=== PATIENT | female | born 1980 | race Caucasian/White ===

== ENCOUNTER 2017-12-25 05:55 | Inpatient (IN) ==
--- NOTE | 2017-12-25 07:11 | ED ---
HPI General Chief Complaint: Psychiatric Symptoms Stated Complaint: Psych Eval Time Seen by Provider: 12/25/17 07:09 Source: patient Mode of arrival: ambulatory Limitations: no limitations History of Present Illness HPI Narrative: 37-year-old female presents emergency department as a transfer [place]. She has been medically clear prior to arrival. Patient did cut her left wrist after drinking a large amount of alcohol which worsens her depression. Patient tells me that "this was stupid" and she was "just upset." Patient states she has not done this in the past. She denies any other medical needs at this time. Related Data Allergies Allergy/AdvReac Type Severity Reaction Status Date / Time No Known Allergies Allergy Unverified 12/25/17 09:06 Review of Systems Except as stated in HPI: all other systems reviewed are negative PMFSH Medical History Medical History Decreased vision (Acute) Depressed (Acute) Surgical History Surgical History History of tubal ligation (Acute) Family History Family History Other Family history of cancer Social History Social History Substance History: No History of Abuse Second Hand Smoke Exposure: No Smoking Status: Heavy tobacco smoker Tobacco Type: Cigarettes How Often Do You Have a Drink Containing Alcohol: 2 to 4 times a month Exam Narrative Exam Narrative: GENERAL: Well-nourished, well-developed female patient in no acute distress SKIN: Focused skin assessment warm/dry. Horizontal laceration on the anterior left wrist. [place] intact. Bleeding is controlled. HEAD: Normocephalic. EYES: No scleral icterus. No injection or drainage. NECK: Supple, trachea midline. No JVD or lymphadenopathy. CARDIOVASCULAR: Elevated rate RESPIRATORY: No accessory muscle use. GASTROINTESTINAL: Abdomen nondistended. MUSCULOSKELETAL: No cyanosis, or edema. BACK: No obvious deformity Course Initial Documented Vital Signs Pulse Rate 87 12/25/17 10:00 Respiratory Rate 18 12/25/17 10:00 Blood Pressure 102/64 12/25/17 10:00 Last Documented Vital Signs Temperature 97.7 F 12/25/17 18:21 Pulse Rate 98 H 12/25/17 18:21 Respiratory Rate 16 12/25/17 18:21 Blood Pressure 111/55 L 12/25/17 18:21 Pulse Oximetry 96 12/25/17 18:21 Medical Decision Making HARSHAD Attestation HARSHAD supervised visit: No MDM Narrative Medical decision making narrative: 37-year-old female is a [facility] act transfer from another facility after being medically clear. Patient does have a self- inflicted laceration to the left wrist. It is approximated with deloris prior to arrival. The extremity remains neurovascularly intact. No limitations in range of motion. Sensation is intact distal affected extremity. Lab work is not needed at this time as it was already done. Patient remains medically cleared to undergo psychiatric screening for further evaluation and disposition. Differential Diagnosis Differential Diagnosis: Mood disorder versus personality disorder versus adjustment reaction disorder Discharge Plan Discharge Disposition Patient Disposition: 30 Still Patient Discharge Condition Condition: Stable Physicians Team ED Provider: Gonzalo Chiu ED Midlevel Provider: Asael Andres Primary Care Provider: Primary Care Herlinda Infante Attending Provider: Mike Graham. Other Providers: Marco Weaver ; Salome Garcia ; Melyssa Delgadillo ; Arpit Martin ; Tabitha Fletcher ; Ang Pelaez ; Mike Arce ; Marco Ramirez ; Mariama Park ; Giovanni Langford ; Isrrael Brooks ; Constantino Verde ; Jacques Dallas ; Fabio Bajwa ; Lorena Gary ; Tata Garcia ; Veronica Kapoor ; Filomena Vásquez ; Robina Hadley ; Whit De La Vega ; Nidhi Carlos ; Corrine Rascon ; Destinee Minor ; Angel Locke ; Frances Moon ; Jersey Spencer ; Kar Butler ; Dewayne Mark ; Kar Martines ; Hilaria Castañeda ; Jimbo Christina ; Kar Cueto ; Elder Cope ; Consuelo Parr ; Jimbo Sanchez ; Juwan Kamara ; Montrell Pelaez ; Rochelle Ruiz ; Addie Roberts ; Steven Courtney ; Ilia Jessica ; Bella Corey ; Marcell Falcon ; Stefanie Ramsey ; Shay Mera ; Shraddha Goodman Status ED Status: Left Department Discharge Information Discharge Date/Time: 12/25/17 11:19
[2017-12-25] MEDS ORDERED: Bisacodyl 10 MG Supp RECTAL PRN (09:07)
[2017-12-25] MEDS ORDERED: Aluminum/Magnesium/Simethacone Susp 30 ML UDC PO PRN (09:07)
[2017-12-25] MEDS ORDERED: Acetaminophen 500 MG Tablet PO ONE (09:46)
[2017-12-25] MEDS ORDERED: Haloperidol Inj 5 MG/ML Ampul IV.PUSH PRN (13:05)
--- NOTE | 2017-12-25 13:05 | P.HPPSY ---
Provisional Diagnosis Admission Date: December 25, 2017 09:15 [place] I.: Major depressive disorder, recurrent, severe, without psychosis, depression, alcohol induced mood disorder, alcohol use disorder [place] II.: Cluster B traits [place] III.: No significant medical history Competence Certification of Person's Competence To Provide Express and Informed Consent I have personally examined Norma Mello, a person being served at [facility] on, December 25, 2017 1247. Express and informed consent means consent voluntarily given in writing, by a competent person, after sufficient explanation and disclosure of the subject matter involved to enable the person to make a knowing and willful decision without any element of force, fraud, deceit, duress, or other form of constraint or coercion. This person is 18 years of age or older, is not now known to be incompetent to consent to treatment with a guardian advocate, and does not have a health care surrogate or proxy currently making medical treatment decisions. I have found this person to be one of the following: [] Competent to provide express and informed consent, as defined above, for voluntary admission to this facility and is competent to provide express and informed consent for treatment. He/she has the consistent capacity to make well reasoned, willful, and knowing decisions concerning his or her medical or mental health treatment. The person fully and consistently understands the purpose of the admission for examination/placement and is fully capable of personally exercising all rights assured [place] [] Incompetent to provide express and informed consent to voluntary admission, and this is incompetent to provide express and informed consent to treatment. The person must be transferred to involuntary status and a petition for a guardian advocate filed with the Circuit Court. [x] Refusing to provide express and informed consent to voluntary admission but is competent to provide express and informed consent for treatment. The person must be discharged or transferred to involuntary status. Form shall be completed within 24 hours of a person's arrival at the receiving facility and filed in the clinical record of each person: 1. Admitted on a voluntary basis 2. Permitted to provide express and informed consent to his/her own treatment 3. Allowed to transfer from involuntary to voluntary status 4. Prior to permitting a person to consent to his or her own treatment after having been previously found incompetent to consent to treatment. History of Present Illness Capacity: Has capacity History of Present Illness: The patient is a 37-year-old woman, domiciled with her mother in [place], , unemployed, with psychiatric history of depression, depression, alcohol use disorder, alcohol induced mood disorder, previous psychiatric hospitalizations, previous suicide attempts, self cutting behavior in the past, poor impulse control, she is not in psychotropics, no significant medical history, who was brought to the hospital transfer from [facility] on the [facility] act because the patient tried to commit suicide by cutting herself in her left wrist. The patient has self-inflicted a significant laceration in the left wrist that needed about 9 to 10 sutures. EMR was reviewed. Case discussed with nurses. I called with her father for collateral information, Darin [phone], who reports that the patient has been very impulsive in the last days. She had an argument with her daughter yesterday, verbalize multiple occasions that she wanted to commit suicide, she took her car and went to convenience facility when she took some beers and then tried to commit suicide. Her father also adds that the patient has tried to commit suicide multiple times, is very impulsive. On psychiatric evaluation the patient is calm, superficially cooperative, irritable. Very tearful, requesting to be discharged. She is minimizing her self cutting behavior, stating that he was a very superficial cut that she made to herself after she was made aware that her 20-year-old daughter is now . She reports that he had an argument, she became quite upset, frustrated, drank some alcohol, and then decided to cut herself. At this moment the patient is denies suicidal ideation, homicidal ideation, visual and auditory hallucinations. The patient is logical, coherent and relevant. There is no show any paranoia, delusions, loosening of association. She is oriented 3. She reports the use of alcohol almost every day, denies the use of illegal drugs. - Inpatient Certification I certify that the inpatient services were ordered in accordance with Medicare regulations governing the order. This includes certification that hospital inpatient services are reasonable and necessary and in the case of services not specified as inpatient-only under 42 CFR 419.22(n), that they are appropriately provided as inpatient services in accordance to with the 2-midnight benchmark under 43 CFR 412.3(e) I certify that inpatient psychiatric hospital services are medically necessary. Evaluation and treatment and/or diagnostic testing are expected to improve the patient's condition. The patient needs on a daily basis, active treatment furnished directly by or requiring the supervision of inpatient psychiatric facility personnel. Estimated Total Length of Stay (Days): 5 Plans for Post Hospital Care: Home Review of Systems Constitutional: Denies anorexia, Denies body ache(s), Denies chills, Denies daytime sleepiness, Denies excessive sweating, Denies fatigue, Denies fever(s), Denies headache(s), Denies increased appetite, Denies lack of energy, Denies malaise, Denies night sweats, Denies weakness, Denies weight gain, Denies weight loss, Denies other Eyes: Denies blind spots, Denies blurry vision, Denies bulging eyes, Denies change in vision, Denies double vision, Denies discharge, Denies dry eyes, Denies floaters, Denies irritation, Denies itchy eyes, Denies loss of vision, Denies pain, Denies requires corrective lenses, Denies sensitivity to light, Denies other Ears, Nose, Mouth, and Throat: Denies abnormal hearing, Denies bleeding gums, Denies bad breath, Denies change in voice, Denies dental pain, Denies difficulty swallowing, Denies dizziness, Denies dry mouth, Denies ear discharge , Denies ear pain, Denies facial pain, Denies headache(s), Denies hearing loss, Denies hoarseness, Denies lip swelling, Denies nosebleed, Denies mouth lesions, Denies mouth pain, Denies nasal congestion, Denies nasal discharge, Denies nasal obstruction, Denies nasal trauma, Denies neck lump, Denies neck pain, Denies nose pain, Denies pain with swallowing, Denies poor balance, Denies post nasal drip, Denies ringing in the ears, Denies sinus pain, Denies sinus pressure , Denies sore throat, Denies throat swelling, Denies tongue swelling, Denies other Cardiovascular: Denies chest pain, Denies chest pain at rest, Denies chest pain with activity, Denies excessive sweating, Denies fainting, Denies fast heart rate, Denies foot swelling, Denies generalized swelling, Denies irregular heart rhythm, Denies leg pain with activity, Denies leg sores, Denies leg swelling, Denies lightheadedness, Denies radiating jaw, neck or arm pain, Denies rapid, pounding, or irregular heartbeat, Denies shortness of breath, Denies shortness of breath with activity, Denies shortness of breath when lying down, Denies shortness of breath causing sudden awakening, Denies slow heart rate, Denies other Respiratory: Denies change in phlegm color, Denies chest congestion, Denies cough, Denies coughing up blood, Denies excessive phlegm production, Denies pain on inspiration, Denies pain with cough, Denies shortness of breath, Denies shortness of breath with activity, Denies snoring, Denies stridor, Denies wheezing, Denies other Genitourinary: Denies abnormal periods, Denies abnormal vaginal bleeding, Denies absent period, Denies bleeding between periods, Denies blood in urine, Denies difficulty starting urination, Denies difficulty urinating, Denies dribbling after urination, Denies frequent nighttime urination, Denies genital itching, Denies genital lesions, Denies heavy periods, Denies hot flashes, Denies light periods, Denies nipple discharge, Denies painful intercourse, Denies painful periods, Denies painful urination, Denies pelvic pain, Denies prolapse symptoms, Denies sexual problems, Denies side pain, Denies urinary incontinence, Denies urinary urgency, Denies vaginal discharge, Denies vaginal dryness, Denies vaginal odor, Denies vaginal itching, Denies other Skin/Breast: Denies acne, Denies bleeding lesions, Denies boil, Denies breast swelling, Denies breast skin changes, Denies breast pain, Denies breast lump, Denies change in breast shape, Denies change in hair, Denies change in skin color, Denies changing lesions, Denies dry skin, Denies excessive hair growth, Denies hair loss, Denies itching, Denies lesions, Denies nail changes, Denies new lesions, Denies nipple discharge, Denies non-healing lesions, Denies redness , Denies sensitivity to light, Denies rash, Denies skin pain, Denies skin ulcer , Denies sores, Denies stretch [place], Denies unusual bruising, Denies wounds, Denies yellowing of the skin, Denies other Psychiatric: Reports depression, Reports thoughts of hurting/killing yourself Hematologic/Lymphatic: Denies easy bleeding, Denies easy bruising, Denies enlarged lymph nodes, Denies other Allergic/Immunologic: Denies GI upset with certain foods, Denies hives, Denies itchy eyes, Denies lip swelling, Denies seasonal runny nose, Denies throat swelling, Denies tongue swelling, Denies wheezing, Denies other PMFSH - Tobacco History Smoking Status: Current every day smoker - Alcohol History How Often Do You Have a Drink Containing Alcohol: 4 or more times a week Quality Measures - Substance Abuse History Drug or alcohol use in the past 12 months: Drinks alcohol every day - Patient Strengths Patient's strengths (minimum of 2): Family support Medications and Allergies Active Medications: Active Medications Al Hydrox/Mg Hydrox/Simethicone (Mag-Al Plus Susp Liq) 30 ml PO Q6H PRN PRN Reason: DYSPEPSIA Al Hydroxide/Mg Hydroxide (Milk Of Magnesia Liq) 30 ml PO DAILY PRN PRN Reason: CONSTIPATION Al Hydroxide/Mg Hydroxide (Milk Of Magnesia Liq) 30 ml PO Q12H PRN PRN Reason: Mild Constipation Bisacodyl (Dulcolax Supp) 10 mg RECTAL DAILY PRN PRN Reason: SEVERE CONSITIPATION Hydroxyzine HCl (Atarax) 50 mg PO Q6H PRN PRN Reason: ANXIETY Lactulose (Lactulose Liq) 30 ml PO DAILY PRN PRN Reason: SEVERE CONSITIPATION Senna/Docusate Sodium (Sparkle-Colace) 1 tab PO BID DEION Sennosides (Senokot) 17.2 mg PO Q12H PRN PRN Reason: Moderate Constipation Trazodone HCl (Desyrel) 50 mg PO HS PRN PRN Reason: INSOMNIA Allergies Allergy/AdvReac Type Severity Reaction Status Date / Time No Known Allergies Allergy Unverified 12/25/17 09:06 Exam Vital signs: Vital Signs 12/25/17 10:00 Pulse Rate 87 Respiratory Rate 18 Blood Pressure 102/64 Intake & Output 12/24/17 12/25/17 12/25/17 18:59 06:59 18:59 Weight 82.024 kg Mental Status Examination Appearance: Appropriate Consciousness: Alert Orientation: x4 Motor Activity: Normal gait Speech: Unremarkable Language: Adequate Fund of Knowledge: Adequate Attention and Concentration: Adequate Memory: Unremarkable Mood: Angry, Irritable Affect: Irritable Thought Process & Associations: Intact, Loose associations Hallucination Type: None Suicidal Ideation: Yes Suicidal Plan: No Suicidal Intention: No Homicidal Ideation: No Homicidal Plan: No Homicidal Intention: No Insight: Poor Judgment: Poor Assessment and Plan - Assessment (1) Acute adjustment disorder with depressed mood Code(s): F43.21 - Adjustment disorder with depressed mood Status: Acute - Plan Plan: Estimated LOS: [] days Justification for Continued Inpatient Stay: On psychiatric evaluation today the patient presents quite irritable, oppositional, minimizing recent suicide attempt by cutting her left wrist. Patient reports that she became quite frustrated and depressed when she knew that her daughter was . Even though the patient seems to be very vulnerable, irritable, objectively depressed, she persistently any suicidal ideation. I have communicated with her father who states that the patient has being actually communicated to her family that she would commit suicide very soon. He explains that she has cut in the past but never to this level. There is a patient with psychiatric history of depression, depression, multiple suicidal attempts, parasuicide attempts, and at this moment given her depression and the seriousness of her recent self cutting the patient has an elevated risk of danger to self, she will be admitted in psychiatry for stabilization and safety. Major depressive disorder, recurrent, without psychosis, vs alcohol induced depression vs borderline personality disorder are the most important diagnosis in the differential. Patient will be in [facility]. Consult psychiatry for second opinion. Might consider to start the patient Zoloft 25 mg. residential mental health worker intervention for psychosocial assessment, individual and group therapies, to coordinate safe discharge.
[2017-12-25] MEDS: Ibuprofen 600 MG Tablet PO SCH ×2 (14:34→21:54)
[2017-12-25] MEDS: Senna/Docusate Sodium 8.6/50 MG Tablet PO SCH (20:35)
[2017-12-26] MEDS: Ibuprofen 600 MG Tablet PO SCH ×3 (06:01→21:18)
[2017-12-26 07:08] LABS: Anion Gap 13 meq/L (5-15); Blood Urea Nitrogen 18 mg/dL (7-18); Calcium 8.9 mg/dL (8.5-10.1); Carbon Dioxide 20.7 meq/L (21.0-32.0); Chloride 106 meq/L (98-107); Glomerular Filtration Rate Greater Than 89 mL/min (>89); Glucose,Random 101 mg/dL (74-106); Potassium 3.9 meq/L (3.5-5.1); Sodium 140 meq/L (136-145)
[2017-12-26 07:10] LABS: Cholesterol 171 mg/dL (120-200)
[2017-12-26 07:14] LABS: Chol/HDL Ratio 4.77 Ratio; HDL Cholesterol 35.8 mg/dL (40.0-60.0); LDL Cholesterol,Calculated 86 mg/dL (0-99); Triglycerides 248 mg/dL (42-150)
[2017-12-26] MEDS: Senna/Docusate Sodium 8.6/50 MG Tablet PO SCH ×2 (08:37→21:20)
[2017-12-26] MEDS ORDERED: Acetaminophen 325 MG Tablet PO PRN (11:07)
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
[2017-12-26 11:45] LABS: Hemoglobin A1c 5.3 % (4.3-6.0)
--- NOTE | 2017-12-26 14:20 | P.CONIM ---
History of Present Illness Consult date: 12/26/17 Requesting Physician: Mike Graham Reason for Consult: left wrist laceration Primary Care Provider: No Primary Care Physician Chief Complaint: Bust[place] act History of Present Illness: Ms. Mello is a 37-year-old female without medical problems, and with reported history of depression including depression who presents in transfer from outside hospital under a [place] act following self-inflicted laceration to her left forearm. The hospitalist is consulted for evaluation of post laceration repair of left wrist. No fever or chills. Has full range of motion of the wrist and fingers. The patient has deloris in place and there is no sign of infection. Has some pain at the laceration site controlled with Tylenol. I will advice wound care management if concerns or surgical team/hand surgery if serious concerns. Remove staple in 5-7 days. The patient has no other complaints. Hospitalist will sign off. Discussed with the patient, nurse, Dr Graham Review of Systems DONNA negative except as mentioned in HPI PMFSH - History History Provided By: Patient - Medical History Medical History: Medical History (Last Reviewed 12/25/17 @ 19:10 by ILEANA Pickett) Decreased vision Depressed - Surgical History Surgical History: Surgical History (Last Reviewed 12/25/17 @ 19:10 by ILEANA Pickett) History of tubal ligation - Family History Family History: Family History (Last Reviewed 12/25/17 @ 19:10 by ILEANA Pickett) Other Family history of cancer - Tobacco History Second Hand Smoke Exposure: No Tobacco Use In Past 30 Days: Yes Smoking Status: Heavy tobacco smoker Tobacco Type: Cigarettes - Alcohol History How Often Do You Have a Drink Containing Alcohol: 2 to 4 times a month - Substance Use History Substance History: No History of Abuse - Substance Use Type Alcohol Route Used: By Mouth Frequency: once biweekly, 3 beers. ED report states 4 or more weekly. Comment: Denies Medications and Allergies Active Medications: Active Medications Acetaminophen (Tylenol) 650 mg PO Q6H PRN PRN Reason: PAIN 1-10 AND/OR FEVER >101F Al Hydrox/Mg Hydrox/Simethicone (Mag-Al Plus Susp Liq) 30 ml PO Q6H PRN PRN Reason: DYSPEPSIA Al Hydroxide/Mg Hydroxide (Milk Of Magnesia Liq) 30 ml PO DAILY PRN PRN Reason: CONSTIPATION Al Hydroxide/Mg Hydroxide (Milk Of Magnesia Liq) 30 ml PO Q12H PRN PRN Reason: Mild Constipation Bisacodyl (Dulcolax Supp) 10 mg RECTAL DAILY PRN PRN Reason: SEVERE CONSITIPATION Flumazenil (Romazecon Inj) 0.2 mg IV.PUSH Q1M PRN PRN Reason: OVERSEDATION Haloperidol Lactate (Haldol Inj) 1 mg IV.PUSH Q15M PRN PRN Reason: for severe agitation Hydroxyzine HCl (Atarax) 50 mg PO Q6H PRN PRN Reason: ANXIETY Last Admin: 12/26/17 12:29 Dose: 50 mg Lactulose (Lactulose Liq) 30 ml PO DAILY PRN PRN Reason: SEVERE CONSITIPATION Lorazepam (Ativan) 1 mg PO Q4H PRN PRN Reason: for CIWA 8-10 Lorazepam (Ativan) 2 mg PO Q2H PRN PRN Reason: for CIWA 11-14 Lorazepam (Ativan Inj) 2 mg IV.PUSH Q2H PRN PRN Reason: for CIWA 11-14 Lorazepam (Ativan Inj) 2 mg IV.PUSH Q1H PRN PRN Reason: for CIWA 15-20 Lorazepam (Ativan Inj) 2 mg IV.PUSH Q15M PRN PRN Reason: for CIWA > 20 Lorazepam (Ativan Inj) 1 mg IV.PUSH Q4H PRN PRN Reason: for CIWA 8-10 Nicotine (Habitrol 14 Mg Patch.24 Hr) 1 patch T-DERMAL DAILY [facility] Last Admin: 12/26/17 08:36 Dose: 1 patch Senna/Docusate Sodium (Sparkle-Colace) 1 tab PO BID [facility] Last Admin: 12/26/17 08:37 Dose: Not Given Sennosides (Senokot) 17.2 mg PO Q12H PRN PRN Reason: Moderate Constipation Trazodone HCl (Desyrel) 50 mg PO HS PRN PRN Reason: INSOMNIA Allergies Allergy/AdvReac Type Severity Reaction Status Date / Time No Known Allergies Allergy Unverified 12/25/17 09:06 Exam Vital signs: Vital Signs 12/25/17 18:21 12/26/17 06:00 Temperature 97.7 F 98.3 F Pulse Rate 98 H 81 Respiratory Rate 16 17 Blood Pressure 111/55 L 117/58 L Pulse Oximetry 96 98 Intake & Output 12/25/17 12/26/17 12/26/17 18:59 06:59 18:59 Weight 82.024 kg Narrative: GENERAL: 37 F in the chair watching TV , appears in nad. SKIN: Left wrist laceration repaired, deloris in place, no signs of infection, dry gauze covering. Warm and dry. HEAD: Normocephalic. EYES: No scleral icterus. No injection or drainage. NECK: Supple, trachea midline. No JVD or lymphadenopathy. CARDIOVASCULAR: Regular rate and rhythm without murmurs, gallops, or rubs. RESPIRATORY: Breath sounds equal bilaterally. No accessory muscle use. GASTROINTESTINAL: Abdomen soft, non-tender, nondistended. MUSCULOSKELETAL: Full range of motion of left wrist. No cyanosis, or edema. Results - Labs CBC & Chem 7: 12/26/17 05:50 Labs: Laboratory Results - last 24 hr 12/26/17 12/26/17 05:50 05:50 Sodium 140 Potassium 3.9 Chloride 106 Carbon Dioxide 20.7 L Anion Gap 13 BUN 18 Creatinine 0.72 Estimated GFR Greater than 89 Random Glucose 101 Hemoglobin A1c 5.3 Calcium 8.9 Triglycerides 248 H Cholesterol 171 LDL Cholesterol, Calc 86 HDL Cholesterol 35.8 L Cholesterol/HDL Ratio 4.77 Assessment and Plan - Plan 37-year-old female with psychiatric history as detailed above who presents in transfer from outside hospital under [place] act following self-inflicted forearm laceration. Adjustment disorder with mixed disturbance of emotions and conduct on CIWA protocol. Management per psychiatry L Wrist laceration: no signs of infection and is healing well. [place] in place. Has full range of motion of the wrist and fingers. Has some pain at the laceration site controlled with Tylenol. I will advice wound care management if concerns or surgical team/hand surgery if serious concerns. Remove staple in 5- 7 days. Hospitalist will sign off. Discussed with the patient, nurse, Dr Graham Thank you for this consultation. The hospitalist will sign off. Please consult wound care or or surgical team/hand surgery if need for wrist laceration. Medically the patient is stable and has no medical problems.
[2017-12-26] MEDS: traZODone 50 MG Tablet PO PRN (21:29)
[2017-12-27] MEDS: Ibuprofen 600 MG Tablet PO SCH ×3 (05:20→21:07)
--- NOTE | 2017-12-27 11:00 | P.PNPSY ---
Subjective Remarks: Patient seen and examined with nurse. Chart reviewed. Case discussed with nursing staff. No behavioral issues noted. CIWA score minimal per nurse. On my examination today, patient complains of anxiety. She feels especially anxious on the inpatient unit as she is unused to seeing other patients with mental illness, but with reflection she notes that anxiety has been a more persistent issue for her throughout her life. I encourage psychotherapy on outpatient basis to target this issue. We also discuss pharmacotherapeutic options to manage anxiety and settle on a trial of BuSpar. No mood symptoms. No SI/HI. No physical complaints. Vital Signs Temp Pulse Resp BP Pulse Ox 12/27/17 06:00 97.7 F 84 18 105/60 98 12/26/17 18:09 98.1 F 105 H 18 107/56 L 99 Intake and Output 12/27/17 12/27/17 12/27/17 06:59 14:59 22:59 Other: Weight 78.6 kg Labs reviewed. No new labs. Review of Systems All other systems reviewed negative except as stated in HPI Mental Status Examination Appearance: Appropriate Consciousness: Alert Orientation: x4 Motor Activity: Normal gait, Other (No motor abnormalities noted) Speech: Unremarkable Language: Adequate Fund of Knowledge: Adequate Attention and Concentration: Adequate Memory: Unremarkable (Grossly intact on clinical exam) Mood: Anxious Affect: Appropriate, Anxious (Mild) Thought Process & Associations: Intact, Logical, Linear Thought Content: Appropriate Hallucination Type: None Delusion Type: None Suicidal Ideation: No Suicidal Plan: No Suicidal Intention: No Homicidal Ideation: No Homicidal Plan: No Homicidal Intention: No Insight: Fair Judgment: Impulsive Assessment and Plan - Assessment (1) Adjustment disorder with mixed disturbance of emotions and conduct Code(s): F43.25 - Adjustment disorder with mixed disturbance of emotions and conduct Status: Acute - Plan Plan: Add BuSpar 5mg TID to target anxiety. R/B/A discussed with patient. Hospitalist input noted and appreciated. Continue to monitor on the inpatient unit. Continue other medications and care as ordered. Justification for Continued Inpatient Stay: Medication changes. Monitoring for impairment in safety, none noted. Discharge Planning: Possible discharge tomorrow, Sunday Request Healthcare Surrogate/Guardian Advocate?: No
[2017-12-27] MEDS: LORazepam 1 MG Tablet PO PRN ×2 (11:57→18:12)
[2017-12-27] MEDS: Senna/Docusate Sodium 8.6/50 MG Tablet PO SCH ×2 (21:06→22:51)
[2017-12-27] MEDS: traZODone 50 MG Tablet PO PRN (21:07)
[2017-12-28] MEDS: Ibuprofen 600 MG Tablet PO SCH (06:38)
[2017-12-28] MEDS: Senna/Docusate Sodium 8.6/50 MG Tablet PO SCH (09:01)
[2017-12-28] MEDS: LORazepam 1 MG Tablet PO PRN (09:31)
--- NOTE | 2017-12-28 12:20 | P.DSPSY ---
Psychiatry Discharge Summary Inpatient Psychiatric care?: Yes Advance Directives: No Mental Health Advance Directive: No Health Care Proxy: No - Admission Admission Date: December 25, 2017 09:15 - Admission Diagnosis (1) Acute adjustment disorder with depressed mood Code(s): F43.21 - Adjustment disorder with depressed mood Brief History: The patient is a 37-year-old woman, domiciled with her mother in [place], , unemployed, with psychiatric history of depression, depression, alcohol use disorder, alcohol induced mood disorder, previous psychiatric hospitalizations, previous suicide attempts, self cutting behavior in the past, poor impulse control, she is not in psychotropics, no significant medical history, who was brought to the hospital transfer from [facility] on the [place] because the patient tried to commit suicide by cutting herself in her left wrist. The patient has self-inflicted a significant laceration in the left wrist that needed about 9 to 10 sutures. EMR was reviewed. Case discussed with nurses. I called with her father for collateral information, Darin [phone], who reports that the patient has been very impulsive in the last days. She had an argument with her daughter yesterday, verbalize multiple occasions that she wanted to commit suicide, she took her car and went to convenience facility when she took some beers and then tried to commit suicide. Her father also adds that the patient has tried to commit suicide multiple times, is very impulsive. On psychiatric evaluation the patient is calm, superficially cooperative, irritable. Very tearful, requesting to be discharged. She is minimizing her self cutting behavior, stating that he was a very superficial cut that she made to herself after she was made aware that her 20-year-old daughter is now . She reports that he had an argument, she became quite upset, frustrated, drank some alcohol, and then decided to cut herself. At this moment the patient is denies suicidal ideation, homicidal ideation, visual and auditory hallucinations. The patient is logical, coherent and relevant. There is no show any paranoia, delusions, loosening of association. She is oriented 3. She reports the use of alcohol almost every day, denies the use of illegal drugs. Tobacco Use In Past 30 Days: Yes How Often Do You Have a Drink Containing Alcohol: 2 to 4 times a month Hospital Course: Patient was admitted to a locked, inpatient psychiatric unit. A general medical consultation was obtained. Appropriate precautions were in place throughout patient's hospital stay. Patient was seen and examined on the unit by psychiatry and also visited by counselor. Psychotropic medications were adjusted. Patient tolerated medication changes well without side effects. There is no evidence of any suicidality or homicidality on the inpatient unit. The patient remained in behavioral control and was medication compliant. There was no evidence of self-care deficit. Collateral information was obtained from the patient's mother. On the day of discharge: Patient seen and examined with nurse. Chart reviewed. Case discussed with nursing staff. No behavioral issues noted overnight. Case discussed in treatment team. Counselor has reached out to the patient's mother who is reportedly comfortable with accepting the patient home today. On my examination today, the patient is requesting discharge from the inpatient psychiatric unit today. She denies any suicidal or homicidal ideation, intent or plan and contracts for safety. I can elicit no depressive or hypomanic/manic symptoms. Anxiety level is decreased. She has no audiovisual hallucinations, nor can I elicit any delusional material. There is no evidence of impairment in reality construction. Denies side effects from medications. Agreeable to outpatient psychiatric follow-up. No physical complaints. Weighing the relevant factors and based on the available evidence, I adult care provider that the patient does not meet criteria for ongoing involuntary psychiatric hospitalization. There is no evidence of imminent risk of harm to self or others at this point, nor is there evidence of self-care deficit to support involuntary psychiatric hospitalization. Patient is requesting discharge from the inpatient psychiatric unit today, and I have no basis to retain her over her objection. Patient will be discharged home today with psychiatric follow-up as arranged by counselor. Patient is also to follow up with primary care, and I have instructed the patient to follow up for staple removal from her forearm laceration. I have counseled the patient to abstain from substances of abuse and have recommended outpatient chemical dependency evaluation and treatment. I have counseled the patient regarding warning signs for need to return to the psychiatric emergency room as part of a general safety plan. - Discharge Discharge Date: 12/28/17 - Discharge Diagnosis (1) Adjustment disorder with mixed disturbance of emotions and conduct Diagnosis: Principal (Resolved) Code(s): F43.25 - Adjustment disorder with mixed disturbance of emotions and conduct Status: Acute (2) Alcohol abuse Diagnosis: Secondary (Counseled to quit) Code(s): F10.10 - Alcohol abuse, uncomplicated Status: Acute Discharge Disposition: Home - Discharge Instructions Discharge Diet: Regular Diet Activities You Can Perform: Weight Bearing As Tolerat - Discharge Time <= 30 minutes Mental Status Examination Appearance: Appropriate Consciousness: Alert Orientation: x4 Motor Activity: Normal gait, Other (No abnormal motor movements noted. No signs of withdrawal noted.) Speech: Unremarkable Language: Adequate Fund of Knowledge: Adequate Attention and Concentration: Adequate Memory: Unremarkable (Grossly intact on clinical exam) Mood: Appropriate Affect: Appropriate Thought Process & Associations: Intact, Logical, Goal directed, Linear Thought Content: Appropriate Hallucination Type: None Delusion Type: None Suicidal Ideation: No Suicidal Plan: No Suicidal Intention: No Homicidal Ideation: No Homicidal Plan: No Homicidal Intention: No Mental Status Exam Remarks: Insight and judgment are fair Discharge/Advance Care Plan - Results Vital Signs: Last Vital Signs Temp 98.4 F 12/28/17 05:20 Pulse 75 12/28/17 05:20 Resp 18 12/28/17 05:20 BP 95/50 L 12/28/17 05:20 Pulse Ox 97 12/28/17 05:20 Lab Results: Laboratory Results Hemoglobin A1c 5.3 % (4.3-6.0) 12/26/17 05:50 Triglycerides 248 mg/dL (42-150) H 12/26/17 05:50 Cholesterol 171 mg/dL (120-200) 12/26/17 05:50 LDL Cholesterol, Calc 86 mg/dL (0-99) 12/26/17 05:50 HDL Cholesterol 35.8 mg/dL (40.0-60.0) L 12/26/17 05:50 Summary of Procedures: None done Pending Results: None - Medications Number of antipsychotic medications at discharge: 0 - Discharge Care Plan Goals to Promote Your Health: * To prevent worsening of your condition and complications * To maintain your health at the optimal level Directions to Meet Your Goals: Take your medications as prescribed Follow your dietary instruction Follow activity as directed Keep your appointments as scheduled Take your immunizations and boosters as scheduled If your symptoms worsen call your PCP, if no PCP go to Urgent Care Center or Emergency Room For 15/01 questions related to your inpatient stay or results of tests pending at discharge, please contact Dr. Mike Graham MD at [phone] Smoking is Dangerous to Your Health. Avoid second hand smoking
== END 2017-12-28 16:00 | disposition home or self-care (01) ==
LOC: NEPJ 05:55 → NEDA 09:15 → H260 11:19
PROVIDERS: ADMIT Psychiatry & Neurology Psychiatry; ATTEND Psychiatry & Neurology Psychiatry
DX: X78.1XXA Intentional self-harm by knife, initial encounter; Z91.5 Personal history of self-harm; S61.512A Laceration without foreign body of left wrist, initial encounter; F41.9 Anxiety disorder, unspecified; F33.2 Major depressive disorder, recurrent severe without psychotic features; F17.210 Nicotine dependence, cigarettes, uncomplicated; F10.14 Alcohol abuse with alcohol-induced mood disorder; F43.25 Adjustment disorder with mixed disturbance of emotions and conduct